=== PATIENT | female | born 1965 ===

== ENCOUNTER 2022-02-12 12:56 | Outpatient (CLI) | payer OTHER ==
--- NOTE | 2022-02-15 10:55 | Ultrasound Report ---
LIMITED ULTRASOUND OF LEFT BREAST: 02/12/2022 CLINICAL: Patient returns today to evaluate an asymmetry in the left breast. Comparison is made to exams dated: 02/12/2022 mammogram - [facility], 12/29/2016 ammogram, and 12/19/2015 mammogram - [facility]. Color flow and real-time ultrasound of the left breast 5-6 o'clock region were performed. [place] scal e images of the real-time examination were reviewed. No significant abnormalities were seen sonographically in the left breast. IMPRESSION: NEGATIVE There is no sonographic evidence of malignancy. There is no abnormality seen in the left breast to correspond with the area of clinical concern and p atient directed area of palpable abnormality at 5 o'clock/lower outer quadrant which likely represent normal fibroglandular tissue, however, recommend clinical follow up for persistent or worsening symp toms, or development of any clinically suspicious findings. A 1 year screening mammogram is recommended. Findings and recommendations were conveyed to the patient during today's evaluation. This exam was interpreted at Station ID: [id number]. Electronically Signed By: Perfecto Perez M.D. aty/:02/12/2022 15:25:29 Ultrasound BI-RADS: 1 Negative BI-RADS CATEGORY: (1) - 1 RECOMMENDATION: (ANNUAL) - Recommend routine annual screening mammography. [id number] 1 year screening LATERALITY: (B)
--- NOTE | 2022-02-15 10:55 | Mammography Report ---
BILATERAL DIGITAL DIAGNOSTIC MAMMOGRAM 3D/2D: 02/12/2022 CLINICAL: Palpable left breast lump by physician. Due for Bilateral. Comparison is made to exams dated: 12/29/2016 mammogram and 12/19/2015 mammogram - [facility]. There are scattered areas of fibroglandular density in both breasts (category b / 25%-50% glandular t issue). No significant masses, calcifications, or other findings are seen in either breast. IMPRESSION: INCOMPLETE: NEEDS ADDITIONAL IMAGING EVALUATION There is no abnormality seen in the left breast to correspond with the area of clinical concern and p alpable abnormality in the lower outer quadrant, however, an ultrasound is recommended for further ev aluation and is scheduled to immediately follow this examination. Based on the Tyrer Cuzick model (a risk assessment model) the patients lifetime risk is 10.1% and he r 10 year risk is 3.3%. According to the ACR, ACS, and NCCN guidelines, an annual breast MRI exam bruno ng with mammogram is recommended if the patients lifetime risk is 20% or greater. This exam was interpreted at Station ID: [id number]. NOTE: For mammograms, a report in lay terms will be sent to the patient. Approximately 15% of breast malignancies will not be visualized mammographically. In the management of a palpable breast mass, a negative mammogram must not discourage biopsy of a clinically suspicious lesion. Electronically Signed By: Perfecto Perez M.D. aty/:02/12/2022 14:38:51 ACR BI-RADS Category 0: Incomplete 3340F PARENCHYMAL PATTERN: (A) - The breast(s) demonstrate(s) scattered fibroglandular densities. BI-RADS CATEGORY: (0) - 0 Ultrasound [id number] Immediate follow-up LATERALITY: (L)
== END 2022-02-12 12:57 | disposition home or self-care (01) ==
LOC: DI 12:56
DX: N63.23 Unspecified lump in the left breast, lower outer quadrant (principal)